=== PATIENT | male | born 1995 | race Hispanic/Latino ===

== ENCOUNTER 2019-09-28 10:48 | Emergency (ER) | payer BC, OTHER, SELFPAY ==
[2019-09-28 11:41] LABS: BASOPHILS % (AUTO) 0.3 % (0.0-5.0); HEMATOCRIT 42.9 % (42-54); LYMPHOCYTES % (AUTO) 16.6 % (21.0-51.0); MEAN CORPUSCULAR HEMOGLOBIN 28.9 pg (27.0-33.0); MEAN CORPUSCULAR HGB CONC 33.8 g/dL (32.0-36.0); MEAN CORPUSCULAR VOLUME 85.6 fL (79-99); MONOCYTES % (AUTO) 5.3 % (3.0-13.0); NEUTROPHILS % (AUTO) 77.4 % (40.0-77.0); PLATELET COUNT (AUTO) 260 K/uL (130-400); RED BLOOD CELL COUNT(AUTO) 5.01 MIL/uL (4.50-6.20); RED CELL DISTRIBUTION WIDTH 12.5 % (11.0-15.5); WHITE BLOOD COUNT (AUTO) 10.5 K/uL (4.8-10.8)
[2019-09-28] MEDS ORDERED: ACETAMINOPHEN EXTRA STRENGTH 500 MG TABLET ONE (11:41)
[2019-09-28 12:00] LABS: CREATININE 1.1 mg/dL (0.5-1.5); POTASSIUM 3.5 mmol/L (3.5-5.1)
== END 2019-09-28 12:52 | disposition home or self-care (01) ==
LOC: EDH 10:48
DX: E86.0 Dehydration (principal); R50.9 Fever, unspecified; Z20.828 Contact with and (suspected) exposure to other viral communicable diseases; F41.9 Anxiety disorder, unspecified; I10 Essential (primary) hypertension; E78.5 Hyperlipidemia, unspecified; F32.9 Major depressive disorder, single episode, unspecified
CPT/HCPCS: 36415; 71045; 80048; 85025; 87804 ×2; 96360; 99284; J7030; U0003

== ENCOUNTER 2020-09-30 21:22 | Inpatient (IN) | payer BC ==
[~2020-09-30] VITALS: Ht 177.8 cm; Wt 150.9 kg
[2020-09-30 21:30] VITALS: BP 153/108
[2020-09-30] MEDS ORDERED: ASPIRIN 325 MG TABLET PO ONE (22:00)
[2020-09-30] MEDS ORDERED: LOSA50TA64 PO (22:04)
[2020-09-30] MEDS ORDERED: ASPIRIN 325 MG TABLET ONE (22:05)
[2020-09-30 22:09] LABS: BASOPHILS % (AUTO) 0.4 % (0.0-5.0); LYMPHOCYTES % (AUTO) 19.6 % (21.0-51.0); MEAN CORPUSCULAR HGB CONC 33.4 g/dL (32.0-36.0); MEAN CORPUSCULAR VOLUME 86.9 fL (79-99); MONOCYTES % (AUTO) 4.8 % (3.0-13.0); NEUTROPHILS % (AUTO) 73.9 % (40.0-77.0); PLATELET COUNT (AUTO) 336 K/uL (130-400); RED BLOOD CELL COUNT(AUTO) 4.72 MIL/uL (4.50-6.20); RED CELL DISTRIBUTION WIDTH 12.6 % (11.0-15.5)
[2020-09-30 22:21] LABS: CARBON DIOXIDE 28 mmol/L (21-32); CHLORIDE 103 mmol/L (101-111); CREATININE 0.9 mg/dL (0.5-1.5); GLOMERULAR FILTR. RATE CALC 109 mL/min (>60); GLUCOSE,RANDOM 118 mg/dL (70-105); POTASSIUM 3.7 mmol/L (3.5-5.1); SODIUM SERUM 142 mmol/L (136-145); UREA NITROGEN, BLOOD 15 mg/dL (7-18)
[2020-09-30 22:22] LABS: INR 1.03 (0.85-1.15); PROTHROMBIN TIME 11.2 SEC (9.6-11.6)
[2020-09-30 22:43] LABS: ALANINE AMINOTRANSFERASE 59 U/L (12-78); ALBUMIN 4.1 g/dL (3.5-5.0); ASPARTATE AMINOTRANSFERASE 36 U/L (10-37); BILIRUBIN,TOTAL 0.6 mg/dL (0.2-1.0); MYOGLOBIN 190 ng/mL (10-92); TOTAL PROTEIN, SERUM 8.1 g/dL (6.0-8.3); TROPONIN I < 0.04 ng/mL (0.00-0.06)
[2020-09-30 22:55] LABS: CREATINE KINASE, TOTAL 1224 U/L (21-232)
[2020-09-30] MEDS ORDERED: LACTATED RINGERS 1000ML 1,000 ML IV ONE (23:15)
[2020-10-01] MEDS ORDERED: LACTATED RINGERS 1000ML 1,000 ML IV ONE (00:30)
[2020-10-01] MEDS ORDERED: MORPHINE 2 MG SYG IV PRN (01:45)
[2020-10-01] MEDS ORDERED: ONDANSETRON 4MG INJ IV PRN (01:45)
[2020-10-01] MEDS ORDERED: ACETAMINOPHEN 325 MG TAB PO PRN ×2 (01:45)
[2020-10-01 05:54] VITALS: BP 152/85
[2020-10-01 06:59] LABS: BASOPHILS % (AUTO) 0.6 % (0.0-5.0); EOSINOPHILS % (AUTO) 1.8 % (0.0-8.0); HEMATOCRIT 42.2 % (42-54); LYMPHOCYTES % (AUTO) 34.8 % (21.0-51.0); MEAN CORPUSCULAR HGB CONC 33.9 g/dL (32.0-36.0); MEAN CORPUSCULAR VOLUME 85.6 fL (79-99); MONOCYTES % (AUTO) 6.6 % (3.0-13.0); NEUTROPHILS % (AUTO) 55.9 % (40.0-77.0); PLATELET COUNT (AUTO) 302 K/uL (130-400); RED BLOOD CELL COUNT(AUTO) 4.93 MIL/uL (4.50-6.20); RED CELL DISTRIBUTION WIDTH 12.7 % (11.0-15.5); WHITE BLOOD COUNT (AUTO) 9.7 K/uL (4.8-10.8)
[2020-10-01 07:12] LABS: HEMOGLOBIN A1C 5.9 % (4.0-6.0)
[2020-10-01 07:17] LABS: ALBUMIN 3.8 g/dL (3.5-5.0); BILIRUBIN,TOTAL 0.7 mg/dL (0.2-1.0); CREATININE 0.7 mg/dL (0.5-1.5); POTASSIUM 3.4 mmol/L (3.5-5.1); TOTAL PROTEIN, SERUM 7.5 g/dL (6.0-8.3)
[2020-10-01 07:30] VITALS: BP 153/105
[2020-10-01] MEDS: 0.9%NACL 1000ML 1,000 ML IV SCH ×2 (08:35→10:17)
[2020-10-01 08:51] LABS: CREATINE KINASE, TOTAL 1095 U/L (21-232); MYOGLOBIN 163 ng/mL (10-92)
[2020-10-01] MEDS: ASPIRIN 81MG CHEW TAB PO SCH (09:30)
[2020-10-01] MEDS: METOPROLOL TARTRATE 25 MG TAB PO SCH ×2 (09:30→22:19)
[2020-10-01] MEDS: FAMOTIDINE 20MG TAB PO SCH ×2 (09:31→21:13)
[2020-10-01] MEDS: SODIUM BICARB 8.4% 50ML SYRING 150 MEQ in DEXTROSE 5%-WATER 1,000 ML IV SCH ×2 (11:00→20:03)
[2020-10-01] MEDS: KCL 20 MEQ ERTAB PO SCH (11:15)
[2020-10-01 12:41] LABS: CREATINE KINASE, TOTAL 1118 U/L (21-232); MYOGLOBIN 149 ng/mL (10-92)
[2020-10-01 17:36] LABS: CREATINE KINASE, TOTAL 1071 U/L (21-232); MYOGLOBIN 138 ng/mL (10-92)
[2020-10-01 18:48] VITALS: BP 133/85
[2020-10-01 21:53] VITALS: BP 127/67
[2020-10-02] MEDS: SODIUM BICARB 8.4% 50ML SYRING 150 MEQ in DEXTROSE 5%-WATER 1,000 ML IV SCH ×3 (02:20→17:40)
[2020-10-02 04:24] VITALS: BP 122/62
[2020-10-02 06:14] VITALS: BP 118/69
[2020-10-02 07:33] LABS: BASOPHILS % (AUTO) 0.8 % (0.0-5.0); HEMATOCRIT 39.4 % (42-54); LYMPHOCYTES % (AUTO) 45.5 % (21.0-51.0); MEAN CORPUSCULAR VOLUME 84.9 fL (79-99); MONOCYTES % (AUTO) 6.1 % (3.0-13.0); NEUTROPHILS % (AUTO) 44.3 % (40.0-77.0); PLATELET COUNT (AUTO) 295 K/uL (130-400); RED BLOOD CELL COUNT(AUTO) 4.64 MIL/uL (4.50-6.20); RED CELL DISTRIBUTION WIDTH 12.8 % (11.0-15.5)
[2020-10-02 08:07] LABS: POTASSIUM 4.3 mmol/L (3.5-5.1)
[2020-10-02] MEDS: ASPIRIN 81MG CHEW TAB PO SCH (08:47)
[2020-10-02] MEDS: FAMOTIDINE 20MG TAB PO SCH ×2 (08:47→22:11)
[2020-10-02] MEDS: LOSARTAN 50 MG TABLET PO SCH (08:47)
[2020-10-02] MEDS: METOPROLOL TARTRATE 25 MG TAB PO SCH ×2 (08:47→22:11)
[2020-10-02 08:55] VITALS: BP 135/74
[2020-10-02] MEDS: KCL 20 MEQ ERTAB PO SCH (11:15)
[2020-10-02 14:02] LABS: MYOGLOBIN 196 ng/mL (10-92)
[2020-10-02 14:04] LABS: CREATINE KINASE, TOTAL 1067 U/L (21-232)
[2020-10-02 15:04] LABS: AMPHET/METH SCREEN,URINE NEGATIVE (NEGATIVE); BARBITURATE SCREEN, URINE NEGATIVE (NEGATIVE); BENZODIAZEPINES SCREEN,URINE NEGATIVE (NEGATIVE); CANNABINOID SCREEN,URINE NEGATIVE (NEGATIVE); COCAINE SCREEN,URINE NEGATIVE (NEGATIVE); OPIATE SCREEN,URINE NEGATIVE (NEGATIVE); PHENCYCLIDINE SCREEN,URINE NEGATIVE (NEGATIVE)
[2020-10-02 21:50] LABS: MYOGLOBIN 172 ng/mL (10-92)
[2020-10-02 21:51] LABS: CREATINE KINASE, TOTAL 1190 U/L (21-232)
[2020-10-02 22:00] VITALS: BP 154/93
[2020-10-02 23:30] VITALS: BP 119/44
[2020-10-03] MEDS ORDERED: SODIUM BICARB 50MEQ 50ML VIAL 50 ML ONE (02:44)
[2020-10-03] MEDS ORDERED: DEXTROSE 5%-WATER 1,000 ML IV ONE (02:45)
[2020-10-03] MEDS: SODIUM BICARB 8.4% 50ML SYRING 150 MEQ in DEXTROSE 5%-WATER 1,000 ML IV SCH ×2 (04:00→07:32)
[2020-10-03] MEDS: FAMOTIDINE 20MG TAB PO SCH ×2 (09:07→20:05)
[2020-10-03] MEDS: ASPIRIN 81MG CHEW TAB PO SCH (09:07)
[2020-10-03] MEDS: LOSARTAN 50 MG TABLET PO SCH (09:07)
[2020-10-03] MEDS: METOPROLOL TARTRATE 25 MG TAB PO SCH ×2 (09:07→20:05)
[2020-10-03 09:08] LABS: BASOPHILS % (AUTO) 0.5 % (0.0-5.0); EOSINOPHILS % (AUTO) 3.1 % (0.0-8.0); HEMATOCRIT 40.5 % (42-54); LYMPHOCYTES % (AUTO) 38.4 % (21.0-51.0); MEAN CORPUSCULAR HEMOGLOBIN 28.4 pg (27.0-33.0); MEAN CORPUSCULAR HGB CONC 33.8 g/dL (32.0-36.0); MONOCYTES % (AUTO) 6.3 % (3.0-13.0); NEUTROPHILS % (AUTO) 51.4 % (40.0-77.0); PLATELET COUNT (AUTO) 323 K/uL (130-400); RED BLOOD CELL COUNT(AUTO) 4.82 MIL/uL (4.50-6.20); RED CELL DISTRIBUTION WIDTH 12.5 % (11.0-15.5); WHITE BLOOD COUNT (AUTO) 8.6 K/uL (4.8-10.8)
[2020-10-03 09:17] LABS: CREATININE 0.9 mg/dL (0.5-1.5); POTASSIUM 3.6 mmol/L (3.5-5.1)
[2020-10-03 10:22] LABS: MYOGLOBIN 137 ng/mL (10-92)
[2020-10-03 10:27] LABS: CREATINE KINASE, TOTAL 1057 U/L (21-232)
[2020-10-03 13:00] VITALS: BP 157/77
[2020-10-03] MEDS ORDERED: ALPRAZOLAM 0.25 MG TABLET ONE (13:38)
[2020-10-03] MEDS ORDERED: ALPRAZOLAM 0.25 MG TABLET PO SCH (13:45)
[2020-10-03] MEDS: KCL 20 MEQ ERTAB PO SCH (14:05)
[2020-10-03 16:00] VITALS: BP 148/84
[2020-10-03] MEDS: BUSPIRONE HCL 5 MG TABLET PO SCH ×2 (16:25→20:05)
[2020-10-03] MEDS: LACTATED RINGERS 1000ML 1,000 ML IV SCH (16:25)
[2020-10-03 19:00] VITALS: BP 139/83
[2020-10-03 23:17] VITALS: BP 123/78
[2020-10-04] MEDS: LACTATED RINGERS 1000ML 1,000 ML IV SCH ×4 (00:04→20:38)
[2020-10-04] MEDS ORDERED: ALPRAZOLAM 0.25 MG TABLET PO ONE (03:30)
[2020-10-04] MEDS ORDERED: ALPRAZOLAM 0.25 MG TABLET ONE (03:30)
[2020-10-04 03:57] VITALS: BP 138/89
[2020-10-04 05:11] LABS: BASOPHILS % (AUTO) 0.5 % (0.0-5.0); EOSINOPHILS % (AUTO) 2.4 % (0.0-8.0); HEMATOCRIT 38.8 % (42-54); LYMPHOCYTES % (AUTO) 39.5 % (21.0-51.0); MEAN CORPUSCULAR HEMOGLOBIN 28.7 pg (27.0-33.0); MEAN CORPUSCULAR HGB CONC 33.5 g/dL (32.0-36.0); MEAN CORPUSCULAR VOLUME 85.7 fL (79-99); MONOCYTES % (AUTO) 7.9 % (3.0-13.0); NEUTROPHILS % (AUTO) 49.3 % (40.0-77.0); PLATELET COUNT (AUTO) 311 K/uL (130-400); RED BLOOD CELL COUNT(AUTO) 4.53 MIL/uL (4.50-6.20); RED CELL DISTRIBUTION WIDTH 12.6 % (11.0-15.5); WHITE BLOOD COUNT (AUTO) 9.3 K/uL (4.8-10.8)
[2020-10-04 05:41] LABS: ALBUMIN 3.7 g/dL (3.5-5.0); BILIRUBIN,TOTAL 0.6 mg/dL (0.2-1.0); CREATININE 0.9 mg/dL (0.5-1.5); POTASSIUM 4.3 mmol/L (3.5-5.1); TOTAL PROTEIN, SERUM 7.4 g/dL (6.0-8.3)
[2020-10-04 07:22] VITALS: BP 132/69
[2020-10-04] MEDS: LOSARTAN 50 MG TABLET PO SCH (08:56)
[2020-10-04] MEDS: BUSPIRONE HCL 5 MG TABLET PO SCH ×2 (08:56→20:35)
[2020-10-04] MEDS: ASPIRIN 81MG CHEW TAB PO SCH (08:57)
[2020-10-04] MEDS: FAMOTIDINE 20MG TAB PO SCH ×2 (08:57→20:35)
[2020-10-04] MEDS: METOPROLOL TARTRATE 25 MG TAB PO SCH ×2 (08:57→20:35)
[2020-10-04] MEDS ORDERED: HYDROXYZINE 25 MG TABLET PO PRN (11:00)
[2020-10-04] MEDS: KCL 20 MEQ ERTAB PO SCH (11:15)
[2020-10-04 12:04] VITALS: BP 125/75
[2020-10-04 16:30] VITALS: BP 148/99
[2020-10-04 19:00] VITALS: BP 143/95
[2020-10-04 23:54] VITALS: BP 114/75
[2020-10-05 04:00] VITALS: BP 104/79
[2020-10-05] MEDS: LACTATED RINGERS 1000ML 1,000 ML IV SCH ×2 (04:02→10:32)
[2020-10-05 05:27] LABS: BASOPHILS % (AUTO) 0.6 % (0.0-5.0); HEMATOCRIT 39.2 % (42-54); LYMPHOCYTES % (AUTO) 45.1 % (21.0-51.0); MEAN CORPUSCULAR HGB CONC 32.9 g/dL (32.0-36.0); MEAN CORPUSCULAR VOLUME 85.2 fL (79-99); MONOCYTES % (AUTO) 6.6 % (3.0-13.0); NEUTROPHILS % (AUTO) 44.4 % (40.0-77.0); PLATELET COUNT (AUTO) 307 K/uL (130-400); RED CELL DISTRIBUTION WIDTH 12.5 % (11.0-15.5); WHITE BLOOD COUNT (AUTO) 8.6 K/uL (4.8-10.8)
[2020-10-05 05:41] LABS: ALBUMIN 3.4 g/dL (3.5-5.0); BILIRUBIN,TOTAL 0.5 mg/dL (0.2-1.0); CREATININE 0.9 mg/dL (0.5-1.5); POTASSIUM 4.1 mmol/L (3.5-5.1); TOTAL PROTEIN, SERUM 6.8 g/dL (6.0-8.3)
[2020-10-05 07:38] VITALS: BP 140/98
[2020-10-05] MEDS ORDERED: METO25 PO (08:42)
[2020-10-05] MEDS ORDERED: Buspirone Hcl PO (08:42)
[2020-10-05] MEDS ORDERED: HYDR-3421 PO (08:42)
[2020-10-05] MEDS ORDERED: LOSA50TA64 PO (08:42)
[2020-10-05] MEDS: FAMOTIDINE 20MG TAB PO SCH (10:29)
[2020-10-05] MEDS: ASPIRIN 81MG CHEW TAB PO SCH (10:29)
[2020-10-05] MEDS: LOSARTAN 50 MG TABLET PO SCH (10:29)
[2020-10-05] MEDS: METOPROLOL TARTRATE 25 MG TAB PO SCH (10:29)
[2020-10-05] MEDS: BUSPIRONE HCL 5 MG TABLET PO SCH (10:29)
== END 2020-10-05 12:26 | disposition home or self-care (01) | DRG 206 ==
LOC: EDH 21:22 → EDHIP 10-01 01:35 → 3BH 10-03 11:29
PROVIDERS: ADMIT Internal Medicine; ATTEND Internal Medicine
DX: M94.0 Chondrocostal junction syndrome [Tietze] (principal); M62.82 Rhabdomyolysis; I10 Essential (primary) hypertension; E87.6 Hypokalemia; F32.9 Major depressive disorder, single episode, unspecified; F41.9 Anxiety disorder, unspecified; E78.00 Pure hypercholesterolemia, unspecified; E78.5 Hyperlipidemia, unspecified; J30.81 Allergic rhinitis due to animal (cat) (dog) hair and dander; G47.00 Insomnia, unspecified; Z79.899 Other long term (current) drug therapy
CPT/HCPCS: 36415; 71045; 80048; 80053; 80061; 80305; 82550; 82948; 82977; 83036; 83874; 83880; 84484; 85025; 85610; 93005; 93306; 93356; G0378; J2405; J3490; J7070; J7120

== ENCOUNTER 2020-10-12 18:06 | Emergency (ER) | payer BC ==
[~2020-10-12] VITALS: Ht 177.8 cm; Wt 152.9 kg
[~2020-10-12 18:06] MED LIST: Buspirone Hcl PO; HYDR-3421 PO; LOSA50TA64 PO; METO25 PO
[2020-10-12 18:23] VITALS: BP 132/92
[2020-10-12] MEDS ORDERED: ASPIRIN 325 MG TABLET PO ONE (18:45)
[2020-10-12 19:10] LABS: BASOPHILS % (AUTO) 0.6 % (0.0-5.0); EOSINOPHILS % (AUTO) 2.5 % (0.0-8.0); HEMATOCRIT 42.1 % (42-54); LYMPHOCYTES % (AUTO) 21.1 % (21.0-51.0); MEAN CORPUSCULAR HEMOGLOBIN 28.9 pg (27.0-33.0); MEAN CORPUSCULAR HGB CONC 34.2 g/dL (32.0-36.0); MEAN CORPUSCULAR VOLUME 84.5 fL (79-99); MONOCYTES % (AUTO) 4.8 % (3.0-13.0); NEUTROPHILS % (AUTO) 70.6 % (40.0-77.0); PLATELET COUNT (AUTO) 363 K/uL (130-400); RED BLOOD CELL COUNT(AUTO) 4.98 MIL/uL (4.50-6.20); RED CELL DISTRIBUTION WIDTH 12.8 % (11.0-15.5)
[2020-10-12 19:11] LABS: CARBON DIOXIDE 26 mmol/L (21-32); CHLORIDE 105 mmol/L (101-111); CREATININE 0.8 mg/dL (0.5-1.5); GLOMERULAR FILTR. RATE CALC 125 mL/min (>60); GLUCOSE,RANDOM 94 mg/dL (70-105); POTASSIUM 3.8 mmol/L (3.5-5.1); SODIUM SERUM 142 mmol/L (136-145); UREA NITROGEN, BLOOD 11 mg/dL (7-18)
[2020-10-12 19:20] LABS: INR 0.99 (0.85-1.15); PROTHROMBIN TIME 10.8 SEC (9.6-11.6)
[2020-10-12 19:21] LABS: PARTIAL THROMBOPLASTIN TIME 25.2 SEC (26.3-35.5)
[2020-10-12 19:22] LABS: ALANINE AMINOTRANSFERASE 50 U/L (12-78); ALBUMIN 4.2 g/dL (3.5-5.0); ASPARTATE AMINOTRANSFERASE 17 U/L (10-37); BILIRUBIN,TOTAL 0.3 mg/dL (0.2-1.0); CREATINE KINASE, TOTAL 160 U/L (21-232); MYOGLOBIN 33 ng/mL (10-92); TOTAL PROTEIN, SERUM 8.1 g/dL (6.0-8.3); TROPONIN I < 0.04 ng/mL (0.00-0.06)
[2020-10-12 19:27] LABS: B-TYPE NATRIURETIC PEPTIDE < 5 pg/mL (0-100)
[2020-10-12] MEDS ORDERED: ASPIRIN 325 MG TABLET ONE (20:13)
[2020-10-12 21:13] VITALS: BP 144/104
== END 2020-10-12 22:17 | disposition home or self-care (01) ==
LOC: EDH 18:06
DX: R07.89 Other chest pain (principal); I10 Essential (primary) hypertension; E78.00 Pure hypercholesterolemia, unspecified; Z79.899 Other long term (current) drug therapy
CPT/HCPCS: 36415; 71045; 80053; 82550; 83874; 83880; 84484; 85025; 85610; 85730; 93005

== ENCOUNTER 2021-02-03 22:19 | Emergency (ER) | payer BC ==
[~2021-02-03] VITALS: Ht 180.3 cm; Wt 154.2 kg
[2021-02-03 22:59] LABS: BASOPHILS % (AUTO) 0.5 % (0.0-5.0); EOSINOPHILS % (AUTO) 1.9 % (0.0-8.0); HEMATOCRIT 39.8 % (42-54); LYMPHOCYTES % (AUTO) 22.6 % (21.0-51.0); MEAN CORPUSCULAR HEMOGLOBIN 28.7 pg (27.0-33.0); MEAN CORPUSCULAR HGB CONC 33.4 g/dL (32.0-36.0); MONOCYTES % (AUTO) 5.5 % (3.0-13.0); NEUTROPHILS % (AUTO) 69.1 % (40.0-77.0); PLATELET COUNT (AUTO) 303 K/uL (130-400); RED BLOOD CELL COUNT(AUTO) 4.63 MIL/uL (4.50-6.20); RED CELL DISTRIBUTION WIDTH 12.8 % (11.0-15.5)
[2021-02-03] MEDS ORDERED: LORAZEPAM 1 MG TABLET PO ONE (23:00)
[2021-02-03 23:07] VITALS: BP 135/71
[2021-02-03 23:13] LABS: CREATININE 1.1 mg/dL (0.5-1.5); POTASSIUM 3.4 mmol/L (3.5-5.1)
[2021-02-03 23:18] LABS: ALBUMIN 3.8 g/dL (3.5-5.0); BILIRUBIN,TOTAL 0.2 mg/dL (0.2-1.0); TOTAL PROTEIN, SERUM 7.4 g/dL (6.0-8.3)
[2021-02-03] MEDS ORDERED: HYDR-3421 PO (23:25)
[2021-02-03] MEDS ORDERED: POTASSIUM BICARB/CIT AC 25 MEQ TABLET.EFF PO ONE (23:30)
== END 2021-02-04 00:09 | disposition home or self-care (01) ==
LOC: EDH 22:19
DX: F41.0 Panic disorder [episodic paroxysmal anxiety] (principal); R07.89 Other chest pain; I10 Essential (primary) hypertension; R73.09 Other abnormal glucose; E66.9 Obesity, unspecified; Z79.899 Other long term (current) drug therapy; Z68.42 Body mass index [BMI] 45.0-49.9, adult
CPT/HCPCS: 36415; 71045; 80053; 84484; 85025; 93005